=== PATIENT | female | born 1940 ===

== ENCOUNTER 2018-08-13 10:53 | Outpatient (CLI) | payer OTHER ==
[~2018-08-13] VITALS: Ht 61 cm; Wt 2.3 kg
== END 2018-08-13 11:10 | disposition home or self-care (01) ==
LOC: OFIC 805 10:53
DX: K11.8 Other diseases of salivary glands (principal)

== ENCOUNTER 2018-10-15 12:15 | Outpatient (CLI) | payer OTHER ==
[~2018-10-15] VITALS: Ht 152.4 cm; Wt 45.4 kg
== END 2018-10-15 12:30 | disposition home or self-care (01) ==
LOC: OFIC 805 12:15
DX: K11.8 Other diseases of salivary glands (principal); E04.2 Nontoxic multinodular goiter